=== PATIENT | male | born 1945 | race Caucasian/White ===

== ENCOUNTER 2019-01-18 06:57 | Day surgery (SDC) | payer BC, OTHER ==
[2019-01-17 13:16] VITALS: BMI 32.4
[2019-01-18] MEDS ORDERED: BUPIVACAINE HCL/PF 0.5% (5 MG/ML) 30 ML VIAL IJ ONE ×3 (07:31→09:25)
[2019-01-18] MEDS ORDERED: PROPOFOL 20 ML ONE ×3 (07:43)
[2019-01-18] MEDS ORDERED: MIDAZOLAM HCL 2 MG/2 ML SINGLE DOSE VIAL ONE (07:45)
[2019-01-18] MEDS ORDERED: DEXAMETHASONE SOD PHOSPHATE 4 MG/1 ML VIAL ONE (07:48)
[2019-01-18] MEDS ORDERED: SODIUM CHLORIDE 0.9% P/F 10 ML VIAL IJ ONE (07:49)
[2019-01-18] MEDS ORDERED: ceFAZolin SODIUM 1 GM VIAL ONE (07:49)
[2019-01-18] MEDS ORDERED: ceFAZolin SODIUM 1 GM VIAL IVPB ONE (09:15)
[2019-01-18] MEDS ORDERED: KETOROLAC TROMETHAMINE 30 MG/1 ML VIAL ONE (09:16)
[2019-01-18] MEDS ORDERED: ONDANSETRON 4 MG/2 ML VIAL IVPUSH PRN (09:19)
[2019-01-18] MEDS ORDERED: oxyCODONE HCL 5 MG TABLET PO PRN ×2 (09:19)
[2019-01-18] MEDS ORDERED: LACTATED RINGERS SOLUTION 1,000 ML IV SCH (09:30)
--- NOTE | 2019-01-18 10:05 | OP ---
Operative Note - Note: Operative Date: 01/18/19 Pre-Operative Diagnosis: Phimosis, balanitis, and penile chordee Operation: Penoplasty, circumcision, and penile block Findings: Severe phimosis/balanitis. Scarred frenulum and distal glandular angulation. Post-Operative Diagnosis: Same as Pre-op Surgeon: Kolby Wiggins Anesthesia: General, Local (local block ) Specimens Removed: foreskin and scar tissue Estimated Blood Loss (mls): 10 Operative Report Dictated: Yes
--- NOTE | 2019-01-18 11:01 | CONS ---
DATE OF CONSULTATION: DATE OF DICTATION: 01/18/2019 HISTORY: Patient is a 73-year-old male with history of metastatic prostate cancer. He underwent brachytherapy in 1999 and was on total androgen ablation. His last PSA was 0.13. 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 His last cystoscopy was in September of 2018. He does have symptoms of frequency, urgency, and dysuria. He is a diabetic. He states that he has been unable to retract his foreskin over the past year. He has painful erections and a curvature in the mid part of the penile shaft. PHYSICAL EXAMINATION: Chest Wall: Reveals a normal chest. Abdomen: Soft. Genitourinary: Genitalia reveal small, atrophic testes. Penile shaft is phimotic. Frenulum is scarred. His prostate is flat and firm. 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 PLAN: Circumcision, penoplasty. This was explained to patient, and he agrees. Hayde [id number]
--- NOTE | 2019-01-18 11:13 | OP ---
DATE OF OPERATION:01/18/2019 PREOPERATIVE DIAGNOSIS: Phimosis, balanitis. POSTOPERATIVE DIAGNOSIS: Phimosis, balanitis with penile chordee. OPERATIVE PROCEDURE: Circumcision, lysis of adhesions, and repair of penile chordee. ANESTHESIA: General and penile block. DESCRIPTION OF PROCEDURE: Under above-stated anesthesia, patient is prepped and draped in the usual sterile manner. He is placed in the supine position. Completely closed and phimotic foreskin was grasped and taunted outwards. Excess foreskin was excised, and inspection of the glans revealed adhesions between the glans and the subcoronal tissue. Using blunt and sharp dissection, the tissue was from the carpenter of the penis. Again, inspection of the penis after performing an artificial erection revealed chordee of the distal 1/3 of the penis. The frenulum was scarred; therefore, it was transected after placing LigaSure proximally and distally. The chordee still was present; therefore, a circumferential incision was made below the carpenter. This was carried down through skin and subcutaneous tissue using both blunt and sharp dissection. The entire penis was degloved. There appeared to be fibrous tissue encompassing the distal urethra; therefore, using sharp dissection, all fibrous tissue and bands were excised. There appeared to be dysgenetic Colles fascia. After complete lysis of tissue, a repeat artificial erection revealed straightening of the penis; therefore, excess foreskin was excised in a circumferential manner. Hemostasis was secured with electrocoagulation and 6-0 Vicryl ties. Skin from the shaft was approximated to skin from the glans using 5-0 chromic suture ligatures. The base of the penis was infiltrated with 0.25% Marcaine. Pressure dressing was applied. Patient tolerated the procedure well. He returned to the recovery room in good condition. Hayde [id number]
[2019-01-18 12:13] VITALS: BP 120/66; PULSE 75; TEMP 97.8
--- NOTE | 2019-01-23 17:29 | PATH ---
Surgical Pathology Report Patient Name: MARÍA COMBS [facility]. Rec. #: [id number] /Age/Gender: 1945 (Age: 73) / M Account: [id number] Location: [facility] Taken: 01/18/2019 Received: 01/18/2019 Reported: 01/23/2019 Physicians: Kolby Wiggins M.D. Specimen(s) Received FORESK[place] Clinical History Phimosis, balanitis, penile chordee Final Diagnosis FOR[place], CIRCUMCISION AND PENOPLASTY: GENITAL SKIN WITH PATCHY CHRONIC INFLAMMATION AND FOCAL FIBROSIS. Electronically Signed Deepa Cid M.D. Gross Description Received in formalin labeled "foreskin," is a 4.0 x 2.6 x 0.3 cm jacobs, irregular, wrinkled portion of skin, consistent with foreskin. No discrete epidermal lesions are identified. Merchandise Collector sections are submitted in one cassette. 01/18/201901/18/2019
== END 2019-01-18 12:10 | disposition home or self-care (01) ==
LOC: JASU-SURG 06:57
PROVIDERS: ATTEND Urology
PROC: 0VTTXZZ Resection of Prepuce, External Approach (ICD-10-PCS; principal; 2019-01-18 09:00)
PROC: 0VNS0ZZ Release Penis, Open Approach (ICD-10-PCS; 2019-01-18 09:00)
DX: N47.1 Phimosis (principal); N48.1 Balanitis; N48.89 Other specified disorders of penis
CPT/HCPCS: 82962; 88302-TC; 94760